=== PATIENT | male | born 1965 | race Caucasian/White ===

== ENCOUNTER 2018-11-26 00:10 | Emergency (ER) | payer OTHER ==
[2018-11-26 01:20] VITALS: BP 111/71; PULSE 109; TEMP 98.4; BMI 25.2
--- NOTE | 2018-11-26 03:32 | PDOC ---
History of Present Illness - General Chief Complaint: Sore Throat Stated Complaint: FEVER THROAT PAIN Time Seen by Provider: 11/26/18 00:43 History Source: Patient Exam Limitations: No Limitations Past History - Past Medical History Allergies/Adverse Reactions: Allergies Allergy/AdvReac Type Severity Reaction Status Date / Time No Known Allergies Allergy Verified 11/26/18 01:20 - Suicide/Smoking/Psychosocial Hx Smoking History: Never smoked Have you smoked in the past 12 months: No Information on smoking cessation initiated: No Hx Alcohol Use: No Drug/Substance Use Hx: No *Physical Exam - Vital Signs Last Vital Signs Temp Pulse Resp BP Pulse Ox 98.4 F 109 H 22 H 111/71 96 11/26/18 00:10 11/26/18 00:10 11/26/18 00:10 11/26/18 00:10 11/26/18 00:10 - Physical Exam General Appearance: No: Apparent Distress HEENT: positive: Pharyngeal Erythema (Mild). negative: Muffled/Hoarse voice, Tonsillar Exudate, Tonsillar Erythema, Nasal Congestion, Rhinorrhea Respiratory/Chest: positive: Lungs Clear, Normal Breath Sounds. negative: Respiratory Distress Cardiovascular: positive: Regular Rhythm, Regular Rate, S1, S2. negative: Murmur Gastrointestinal/Abdominal: positive: Normal Bowel Sounds, Soft. negative: Tender, Distended, Guarding, Rebound Integumentary: positive: Normal Color Neurologic: positive: Fully Oriented, Alert, Normal Mood/Affect Moderate Sedation - Procedure Monitoring Vital Signs: Procedure Monitoring Vital Signs Temperature 98.4 F 11/26/18 00:10 Pulse Rate 109 H 11/26/18 00:10 Respiratory Rate 22 H 11/26/18 00:10 Blood Pressure 111/71 11/26/18 00:10 O2 Sat by Pulse Oximetry (%) 96 11/26/18 00:10 ED Treatment Course - RADIOLOGY Radiology Studies Ordered: Category Date Time Status CHEST PA & LAT [RAD] Stat Radiology 11/26/18 01:55 Taken Medical Decision Making - Medical Decision Making 53 y/o M with hx of HLD presents with subjective fever x 5 days along with productive cough with yellow phlegm, mild sore throat and generalized malaise. Has been taking Tylenol; last took it yesterday. Denies sob, cp, abd pain, n/v/d , urinary complaints PE unremarkable; unlikely strep CXR reviewed and negative Patient otherwise appears well Likely viral syndrome Stable for d/c 11/26/18 03:26 *DC/Admit/Observation/Transfer Diagnosis at time of Disposition: Viral URI - Discharge Dispostion Disposition: HOME Condition at time of disposition: Good Decision to Admit order: No - Referrals Referrals: [facility] [place] Group] - 3 days Everton Todd MD [Staff Physician] - 3 days - Patient Instructions Printed Discharge Instructions: DI for Viral Upper Respiratory Infection -- Adult Additional Instructions: Thank you for choosing [facility]. It was a pleasure taking care of you. There is no evidence of pneumonia on your chest xray Likely this is viral syndrome Recommend drinking plenty of water (at least 2 L a day) You may take over the counter Robitussin or Mucinex to help with your symptoms Return to the Emergency Department if your symptoms worsen or persist, you have fever, shortness of breath, chest pain, severe abdominal pain, vomiting, weakness of extremities (arms and/or legs), changes in vision or walking or other concerning symptoms. - Post Discharge Activity
--- NOTE | 2018-11-26 04:04 | PDOC ---
*Physical Exam - Vital Signs Last Vital Signs Temp Pulse Resp BP Pulse Ox 98.4 F 109 H 22 H 111/71 96 11/26/18 00:10 11/26/18 00:10 11/26/18 00:10 11/26/18 00:10 11/26/18 00:10 Medical Decision Making - Medical Decision Making 11/26/18 04:04 Noted hx/pe as documented by PA Agree with assessment and plan *DC/Admit/Observation/Transfer Diagnosis at time of Disposition: Viral URI - Discharge Dispostion Disposition: HOME Condition at time of disposition: Good - Referrals Referrals: [facility] [place] [facility] [place] [Provider Group] - 3 days Everton Todd MD [Staff Physician] - 3 days - Patient Instructions Printed Discharge Instructions: DI for Viral Upper Respiratory Infection -- Adult Additional Instructions: Thank you for choosing [facility]. It was a pleasure taking care of you. There is no evidence of pneumonia on your chest xray Likely this is viral syndrome Recommend drinking plenty of water (at least 2 L a day) You may take over the counter Robitussin or Mucinex to help with your symptoms Return to the Emergency Department if your symptoms worsen or persist, you have fever, shortness of breath, chest pain, severe abdominal pain, vomiting, weakness of extremities (arms and/or legs), changes in vision or walking or other concerning symptoms. - Post Discharge Activity Forms/Work/School Notes: Back to Work
--- NOTE | 2018-11-28 16:57 | EKG ---
Test Reason : Blood Pressure : / mmHG Vent. Rate : 102 BPM Atrial Rate : 102 BPM P-R Int : 158 ms QRS Dur : 098 ms QT Int : 334 ms P-R-T Axes : 042 -13 033 degrees QTc Int : 435 ms SINUS TACHYCARDIA LEFT ATRIAL ENLARGEMENT LEFT VENTRICULAR HYPERTROPHY ABNORMAL ECG Confirmed by MD HERMELINDO, TORIBIO ([id number]) on 11/28/2018 4:57:37 PM Referred By: Confirmed By:TORIBIO CASAREZ MD
== END 2018-11-26 03:56 | disposition home or self-care (01) ==
LOC: JER 00:10
DX: J06.9 Acute upper respiratory infection, unspecified (principal); B97.89 Other viral agents as the cause of diseases classified elsewhere
CPT/HCPCS: 71046-TC-FY; 93005; 93010; 99281-25